=== PATIENT | female | born 1990 | race Two or more races ===

== ENCOUNTER 2019-12-30 07:48 | Outpatient (CLI) | payer OTHER | END 2019-12-30 07:54 | disposition home or self-care (01) | LOC: RX STUDY 07:48 | PROVIDERS: ATTEND Obstetrics & Gynecology | DX: R10.2 Pelvic and perineal pain (principal); N91.2 Amenorrhea, unspecified ==

== ENCOUNTER 2023-03-23 07:16 | Outpatient (CLI) | payer OTHER ==
[~2023-03-23 07:16] MED LIST: ECOTRIN81 MG PO; LABETALOL HCL200 MG PO; PRENATAL + DHA1 EAC1 PO
== END 2023-03-23 09:21 | disposition home or self-care (01) ==
LOC: NST 07:16
PROVIDERS: ATTEND Obstetrics & Gynecology
DX: Z34.83 Encounter for supervision of other normal pregnancy, third trimester (principal)

== ENCOUNTER → 2023-04-06 | Outpatient (CLI) | payer OTHER | END | disposition home or self-care (01) | LOC: NST 16:18 | PROVIDERS: ATTEND Obstetrics & Gynecology | DX: Z34.83 Encounter for supervision of other normal pregnancy, third trimester (principal) ==